=== PATIENT | male | born 1940 | race African-American/Black ===

== ENCOUNTER → 2016-07-04 | Outpatient (CLI) | payer MEDICARE ==
[2015-11-25 04:42] VITALS: BP 120/72
[~2016-07-04] MED LIST: FINA5TAB4 PO; HYDR-2666 PO; HYDR1POW19 MC; LOSA50TA6 PO; METF500T4 PO; NAPR500T PO; PREG75CA PO
--- NOTE | 2016-07-04 13:29 | RAD ---
Exam performed: Carotid Doppler. Clinical indication: TIA Date of Service: 07/04/16. Comparison : None available. Technique: Real-time grayscale and Doppler evaluation of the carotid system was performed and images are obtained. Color flow and spectral analysis was observed. Findings: There is a regular plaquing in both carotid bulbs and proximal internal carotid arteries within both carotid bulbs extending into the internal carotid artery bilaterally. Doppler interrogation reveals normal waveforms and velocities as follows . Peak systolic velocity within the right common carotid artery measures 73.0 cm/sec whereas on the left measures 98.0 cm/sec . The peak systolic velocity within the right ICA measures 90.0 cm/sec whereas on the left measures 65.0 cm/sec. The ICA to CCA ratio on the right measures 1.42 whereas on the left measures 1.13. There is antegrade flow in both vertebral arteries. Impression: 1.A regular atheromatous plaquing involving both carotid bulbs and proximal internal carotid arteries without any flow-limiting stenosis. Note: Stenosis calculations for CT, MR and conventional angiography are based upon determination of the distal ICA diameter in accordance with the NASCET methodology. Stenosis calculations for doppler studies are derived from validated velocity criteria which are known to correlate with NASCET methodology of determining stenosis.
== END | disposition home or self-care (01) ==
LOC: US 10:07
PROVIDERS: ATTEND Family Medicine
DX: I65.23 Occlusion and stenosis of bilateral carotid arteries (principal)
CPT/HCPCS: 93880

== ENCOUNTER → 2016-08-22 | Outpatient (CLI) | payer MEDICARE ==
[2015-11-25 04:42] VITALS: BP 120/72
--- NOTE | 2016-08-23 08:28 | KCIC ---
PROCEDURE MRI lumbar spine without contrast. HISTORY Stenosis, chronic low back pain. Numbness and tingling in legs. TECHNIQUE Sagittal T1, sagittal T2, sagittal STIR, axial T1, and axial T2 sequences are provided. COMPARISON CT from October 22, 2014. FINDINGS There is no malalignment. There is minimal edema in the anterior superior corner of L4 which is probably degenerative. There is fatty replacement of the endplates at several levels. There is disc desiccation from L3-L4 through L5-S1. The conus medullaris is normal in signal intensity and in position. Subcutaneous edema is noted. There is again a complex lesion in the left kidney, not a simple cyst, increased in size from prior CT lumbar spine. Finding is suspicious for renal malignancy, see May 09, 2015 MRI abdomen report. This mass now measures 2.9 x 2.4 centimeters. More typical appearing probable cysts also are noted in both kidneys, largest on the left 2.9 centimeters. The numbering system assumes 5 lumbar type vertebral bodies. Findings by individual level are as follows: L1-L2: There is facet hypertrophy with minimal foraminal narrowing. L2-L3: Minimal disc bulge and moderate facet and ligamentum flavum hypertrophy are noted. There is slight lateral recess narrowing. Midline AP diameter of the thecal sac is not significantly narrowed, 11 millimeters. There is minimal foraminal narrowing. L3-L4: There is a diffuse disc bulge. There is moderate facet and ligamentum flavum hypertrophy. Midline AP diameter of the thecal sac is narrowed to 8 millimeters. There is lateral recess narrowing bilaterally. Foraminal narrowing is [id number]. L4-L5: Disc bulge and moderate facet and ligamentum flavum hypertrophy are noted. Midline AP diameter of the thecal sac is narrowed to 8 millimeters. There is lateral recess narrowing bilaterally. Foraminal narrowing is moderate to severe. L5-S1: Disc bulge and facet hypertrophy are noted with moderate to severe left and [id number] right foraminal narrowing. There is no canal stenosis, midline AP diameter of the thecal sac 14 millimeters. IMPRESSION - Degenerative disc disease along with facet and ligamentum flavum hypertrophy are noted throughout the lumbar spine. Findings are greatest at L3-L4 and L4-L5. - Increased size of the suspicious left renal mass. Electronically signed by: Isaiah Salazar MD (Aug 23, 2016 08:27:05)
== END | disposition home or self-care (01) ==
LOC: KCIC MRI 17:11
DX: M51.36 Other intervertebral disc degeneration, lumbar region (principal); N28.89 Other specified disorders of kidney and ureter
CPT/HCPCS: 72148

== ENCOUNTER → 2016-09-02 | Outpatient (CLI) | payer MEDICARE ==
[2015-11-25 04:42] VITALS: BP 120/72
--- NOTE | 2016-09-02 16:50 | RAD ---
Indication benign prostatic hypertrophy. Grayscale imaging targeted to the kidneys was performed. The right kidney measures 10.7 x 4.6 x 5.2 cm. No hydronephrosis or mass is seen. The urinary bladder appeared grossly normal. Prostatic volume was estimated at approximately 50 cm3.. The urinary bladder was only partially visualized and largely collapsed but appear grossly normal the left kidney measures 10.4 x 4.7 x 4.8 cm. There is a hypoechoic 3 cm mass associated with the left kidney compatible with a cyst. There appears to be a minute left renal calculus. Note was made during the examination of a hypoechoic, probably fluid collection, measuring approximately 5.2 x 3.2 x 4.7 cm immediately superior to the bladder. IMPRESSION: No evidence of hydronephrosis or solid mass seen associated with either kidney. Left renal cyst. Probable minute left renal calculus. Enlarged prostate. Fluid collection superior to the bladder measuring approximately 5 cm in greatest dimension
== END | disposition home or self-care (01) ==
LOC: US 15:46
PROVIDERS: ATTEND Nurse Practitioner Occupational Health
DX: N28.1 Cyst of kidney, acquired (principal)
CPT/HCPCS: 76770

== ENCOUNTER → 2016-09-26 | Outpatient (CLI) | payer MEDICARE ==
[2015-11-25 04:42] VITALS: BP 120/72
[~2016-09-26] MED LIST changes: -HYDR-2666 PO; +HYDR-2758 PO
--- NOTE | 2016-09-26 12:32 | FMS ---
Bilateral shoulders, 6 views, 09/26/2016: History: Shoulder pain The bony structures are demineralized. No acute fracture or dislocation is identified. There are moderate degenerative changes of the glenohumeral articulations, worse on the left. There is moderate spurring at both acromioclavicular articulations. IMPRESSION: 1. Moderate degenerative changes at both glenohumeral and acromioclavicular joints. 2. No acute bony abnormality is detected.
== END | disposition home or self-care (01) ==
LOC: FMSRAD 09:14
PROVIDERS: ATTEND Nurse Practitioner Occupational Health

== ENCOUNTER 2016-11-02 11:52 | Emergency (ER) | payer MEDICARE ==
[2016-11-02 12:34] VITALS: BP 145/76
[2016-11-02] MEDS ORDERED: MORPHINE SULFATE 10 MG/ML VIAL. IM ONE (12:45)
[2016-11-02] MEDS ORDERED: KETOROLAC TROMETHAMINE 60 MG/2 ML INJ. IM ONE (12:45)
[2016-11-02] MEDS ORDERED: CYCLOBENZAPRINE 10 MG TABLET. PO ONE (12:45)
[2016-11-02] MEDS ORDERED: CYCL10TA2 PO (12:46)
--- NOTE | 2016-11-02 12:46 | PHYS DOC ---
Past Medical History Past Medical History: Diabetes-Type II, High Cholesterol, Hypertension, Other Additional Past Medical Histor: neuropathy Past Surgical History: Other Additional Past Surgical Histo: penile implant, spine sx Alcohol Use: None Drug Use: None Adult General Chief Complaint Chief Complaint: LOWER EXT PAIN HPI HPI Patient is a 76 year old male with history of hypertension diabetes type 2 high cholesterol chronic back pain with sciatica who presents with moderate left low back pain radiating to the left lower extremity that began 4 days ago. Patient states he follows up with [facility] pain clinic and has a contract with them. Patient denies any injuries. Denies any loss of bowel bladder function. PCP Dr. Potts Review of Systems Review of Systems Constitutional: Denies fever or chills [] Eyes: Denies change in visual acuity, redness, or eye pain [] HENT: Denies nasal congestion or sore throat [] GI: Denies abdominal pain, nausea, vomiting, bloody stools or diarrhea [] : Denies dysuria or hematuria [] Musculoskeletal: left low back pain radiating to the left lower extremity Integument: Denies rash or skin lesions [] Neurologic: Denies headache, focal weakness or sensory changes [] Endocrine: Denies polyuria or polydipsia [] Current Medications Current Medications Current Medications Medications (Trade) Dose Ordered Sig/López Start Time Stop Time Status Last Admin Dose Admin Cyclobenzaprine HCl (Flexeril) 10 mg 1X ONCE 11/02/16 12:45 11/02/16 12:46 UNV Ketorolac Tromethamine (Toradol Im) 60 mg 1X ONCE 11/02/16 12:45 11/02/16 12:46 UNV Morphine Sulfate 5 mg 1X ONCE 11/02/16 12:45 11/02/16 12:46 UNV Allergies Allergies Allergies Coded Allergies Type Severity Reaction Last Updated Verified No Known Drug Allergies 09/19/13 No Physical Exam Physical Exam Constitutional: Well developed, well nourished, no acute distress, non-toxic appearance. [] HENT: Normocephalic, atraumatic, bilateral external ears normal, oropharynx moist, no oral exudates, nose normal. [] Abdomen: Bowel sounds normal, soft, no tenderness, no masses, no pulsatile masses. [] Skin: Warm, dry, no erythema, no rash. [] Back: Moderate left SI joint tenderness, no midline lumbar spine tenderness, no CVA tenderness. [] Extremities: No tenderness, no cyanosis, no clubbing, ROM intact, no edema. [] Neurologic: Alert and oriented X 3, normal motor function, normal sensory function, no focal deficits noted. [] Psychologic: Affect normal, judgement normal, mood normal. [] Current Patient Data Vital Signs Vital Signs Date Time Temp Pulse Resp B/P (MAP) Pulse Ox O2 Delivery O2 Flow Rate FiO2 11/02/16 12:34 99.3 82 18 97 Room Air 99.3 EKG EKG [] Radiology/Procedures Radiology/Procedures [] Course & Med Decision Making Course & Med Decision Making Pertinent Labs and Imaging studies reviewed. (See chart for details) Patient is in the ED with exacerbation of chronic low back pain with sciatica, no cauda equina syndrome on exam. He follows up with [facility] pain clinic. He was given pain relief in the ED and discharged with Flexeril. He should follow- up with his own pain clinic doctor on Friday next week. Dragon Disclaimer Dragon Disclaimer This electronic medical record was generated, in whole or in part, using a voice recognition dictation system. Departure Departure Impression: Primary Impression: Back pain Additional Impression: Left sciatic nerve pain Disposition: HOME, SELF-CARE Condition: STABLE Referrals: TONY POTTS MD (PCP) Follow-up with your doctor next week as well as the pain clinic doctor Patient Instructions: Back Pain, Adult, Sciatica Additional Instructions: You were seen for exacerbation of chronic back pain with sciatica. Follow-up with the pain clinic at [facility] next week. Take the muscle relaxers as needed. You can take Tylenol for pain. Return to the ED if symptoms worsen especially if you develop loss of bowel or bladder function. Scripts Cyclobenzaprine Hcl (CYCLOBENZAPRINE HCL) 10 Mg Tablet 1 TAB PO TID, #30 TAB Prov: IVANNA LIZARRAGA APRN 11/02/16 Problem Qualifiers Primary Impression: Back pain Back pain location: low back pain Chronicity: acute Back pain laterality: left Sciatica presence: with sciatica Sciatica laterality: sciatica of left side Qualified Codes: M54.42 - Lumbago with sciatica, left side IVANNA LIZARRAGA RISK CONTROL DIRECTOR Nov 02, 2016 12:46
== END 2016-11-02 13:06 | disposition home or self-care (01) ==
LOC: ER 11:52
DX: M54.42 Lumbago with sciatica, left side (principal); E78.00 Pure hypercholesterolemia, unspecified; I10 Essential (primary) hypertension; G89.29 Other chronic pain; E11.40 Type 2 diabetes mellitus with diabetic neuropathy, unspecified
CPT/HCPCS: 96372; 99284; J1885; J2270

== ENCOUNTER 2018-01-29 03:57 | Inpatient (IN) | payer MEDICARE ==
[~2018-01-29] VITALS: Ht 175.3 cm; Wt 98.9 kg
[~2018-01-29 03:57] MED LIST changes: +CYCL10TA2 PO; -LOSA50TA6 PO; +LOSA50TA7 PO; +METF500T16 PO; -METF500T4 PO; +NAPR-683 PO; -NAPR500T PO
[2018-01-29 04:54] LABS: BASO % 1 % (0-3); EOS # 0.1 x10^3/uL (0.0-0.7); EOS % 2 % (0-3); HEMATOCRIT 37.9 % (39.0-53.0); HEMOGLOBIN 13.1 g/dL (13.0-17.5); LYMPH # 1.5 x10^3/uL (1.0-4.8); LYMPH % 23 % (24-48); MEAN CORPUSCULAR HEMOGLOBIN 30 pg (25-35); MEAN CORPUSCULAR HGB CONC 35 g/dL (31-37); MEAN CORPUSCULAR VOLUME 86 fL (79-100); MONO # 0.6 x10^3/uL (0.0-1.1); MONO % 9 % (0-9); NEUT # 4.2 x10^3uL (1.8-7.7); NEUT % 66 % (31-73); PLATELET COUNT 209 x10^3/uL (140-400); RED BLOOD COUNT 4.42 x10^6/uL (4.30-5.70); RED CELL DISTRIBUTION WIDTH 15.3 % (11.5-14.5); WHITE BLOOD COUNT 6.3 x10^3/uL (4.0-11.0)
--- NOTE | 2018-01-29 05:00 | PHYS DOC ---
Past Medical History Past Medical History: COPD, Diabetes-Type II, High Cholesterol, Hypertension, Other Additional Past Medical Histor: neuropathy Past Surgical History: Other Additional Past Surgical Histo: penile implant, spine sx Smoking: Quit Less Than 1 Year Additional Information: STOPPED A FEW WEEKS AGO OF 01/29/2018 Alcohol Use: None Drug Use: None Adult General Chief Complaint Chief Complaint: WEAKNESS/GENERALIZED HPI HPI Patient is a 77 year old male who presents to the ED with generalized weakness and dizziness. He states his symptoms began about 2-3 days ago. 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 He also notes some pain in his right shoulder and the right lateral neck. He rates the pain as a 7/10 and describes it as a constant, achy pain. He notes he has had symptoms like this in the past, but states it was a long time ago and does not remember what caused them. He denies any history of stroke. He also denies any changes in speech, vision, or memory. He denies headache, chest pain, shortness of breath, heart palpitations, numbness, tingling, abdominal pain, nausea, and vomiting. Denies trauma. Denies fever/chills. Review of Systems Review of Systems Constitutional: Notes dizziness; Denies fever or chills Eyes: Denies change in visual acuity, redness, or eye pain HENT: Denies nasal congestion or sore throat Respiratory: Denies cough or shortness of breath Cardiovascular: Denies chest pain or heart palpitations GI: Denies abdominal pain, nausea, vomiting, bloody stools or diarrhea : Denies dysuria or hematuria Musculoskeletal: Notes right shoulder and right neck pain; Denies back pain or joint pain Integument: Denies rash or skin lesions Neurologic: Notes generalized weakness; Denies headache or sensory changes Complete systems were reviewed and found to be within normal limits, except as documented in this note. Family History Family History Noncontributory Current Medications Current Medications Current Medications Medications (Trade) Dose Ordered Sig/López Start Time Stop Time Status Last Admin Dose Admin Aspirin (Daljit Aspirin) 325 mg 1X ONCE 01/29/18 06:15 01/29/18 06:16 Ceftriaxone Sodium 50 ml @ 100 mls/hr 1X ONCE 01/29/18 06:00 01/29/18 06:29 Home meds: hydrocodone, cyclobenzaprine, losartan, metformin, HCTZ, finasteride , pregabalin, and naproxen Allergies Allergies Allergies Coded Allergies Type Severity Reaction Last Updated Verified No Known Drug Allergies 09/19/13 No Physical Exam Physical Exam Constitutional: Well developed, well nourished, no acute distress HENT: Normocephalic, atraumatic, oropharynx moist Eyes: PERRL, EOMI, conjunctiva normal, no discharge Neck: No tenderness to palpation, supple, ROM slightly decreased looking to right Cardiovascular: Heart rate regular rhythm, no murmur Lungs & Thorax: Bilateral breath sounds clear to auscultation Abdomen: Soft, nontender Skin: Warm, dry, no erythema, no rash. [] Back: No tenderness, no CVA tenderness. [] Extremities: No tenderness, no cyanosis, no clubbing, ROM intact, no edema. [] Neurologic: Alert and oriented X 3, cerebellar function intact, normal sensory function, BLE strength +4/5 (drift without touching bed) Psychologic: Affect normal, judgement normal, mood normal. [] NIHSS 2 due to bilateral lower extremity drift without touching bed. Current Patient Data Vital Signs Vital Signs Date Time Temp Pulse Resp B/P (MAP) Pulse Ox O2 Delivery O2 Flow Rate FiO2 01/29/18 04:05 98.1 70 20 145/75 (98) 97 Room Air 98.1 Lab Values Laboratory Tests Test 01/29/18 04:40 01/29/18 05:00 White Blood Count 6.3 x10^3/uL (4.0-11.0) Red Blood Count 4.42 x10^6/uL (4.30-5.70) Hemoglobin 13.1 g/dL (13.0-17.5) Hematocrit 37.9 % (39.0-53.0) L Mean Corpuscular Volume 86 fL (79-100) Mean Corpuscular Hemoglobin 30 pg (25-35) Mean Corpuscular Hemoglobin Concent 35 g/dL (31-37) Red Cell Distribution Width 15.3 % (11.5-14.5) H Platelet Count 209 x10^3/uL (140-400) Neutrophils (%) (Auto) 66 % (31-73) Lymphocytes (%) (Auto) 23 % (24-48) L Monocytes (%) (Auto) 9 % (0-9) Eosinophils (%) (Auto) 2 % (0-3) Basophils (%) (Auto) 1 % (0-3) Neutrophils # (Auto) 4.2 x10^3uL (1.8-7.7) Lymphocytes # (Auto) 1.5 x10^3/uL (1.0-4.8) Monocytes # (Auto) 0.6 x10^3/uL (0.0-1.1) Eosinophils # (Auto) 0.1 x10^3/uL (0.0-0.7) Basophils # (Auto) 0.0 x10^3/uL (0.0-0.2) Sodium Level 147 mmol/L (136-145) H Potassium Level 4.1 mmol/L (3.5-5.1) Chloride Level 108 mmol/L (98-107) H Carbon Dioxide Level 30 mmol/L (21-32) Anion Gap 9 (6-14) Blood Urea Nitrogen 13 mg/dL (8-26) Creatinine 1.0 mg/dL (0.7-1.3) Estimated GFR (Cockcroft-Gault) 87.9 BUN/Creatinine Ratio 13 (6-20) Glucose Level 94 mg/dL (70-99) Calcium Level 9.2 mg/dL (8.5-10.1) Magnesium Level 1.6 mg/dL (1.8-2.4) L Total Bilirubin 0.4 mg/dL (0.2-1.0) Aspartate Amino Transferase (AST) 15 U/L (15-37) Alanine Aminotransferase (ALT) 22 U/L (16-63) Alkaline Phosphatase 58 U/L (46-116) Creatine Kinase 136 U/L (39-308) Troponin I Quantitative < 0.017 ng/mL (0.000-0.055) Total Protein 6.7 g/dL (6.4-8.2) Albumin 3.3 g/dL (3.4-5.0) L Albumin/Globulin Ratio 1.0 (1.0-1.7) Urine Collection Type Unknown Urine Color Yellow Urine Clarity Clear Urine pH 5.5 Urine Specific [place] 1.015 Urine Protein Negative mg/dL (NEG-TRACE) Urine Glucose (UA) Negative mg/dL (NEG) Urine Ketones (Stick) Negative mg/dL (NEG) Urine Blood Large (NEG) Urine Nitrite Positive (NEG) Urine Bilirubin Negative (NEG) Urine Urobilinogen Dipstick 1.0 mg/dL (0.2 mg/dL) Urine Leukocyte Esterase Large (NEG) Urine RBC >40 /HPF (0-2) Urine WBC 11-20 /HPF (0-4) Urine Bacteria Moderate /HPF (0-FEW) Lactic Acid Level 0.9 mmol/L (0.4-2.0) Laboratory Tests 01/29/18 04:40 Laboratory Tests 01/29/18 04:40 EKG EKG @ 4:52, normal sinus rhythm at 60 bpm, some premature atrial complexes, no ST elevations or reciprocal changes; doubt ischemic etiology Interpretation Time: @ 4:56 Radiology/Procedures Radiology/Procedures PROCEDURE: CT HEAD WO CONTRAST PQRS Compliance statement: One or more of the following individualized dose reduction techniques were utilized for this examination: 1. Automated exposure control. 2. Adjustment of the mA and/or kV according to patient size. 3. Use of iterative reconstruction technique. Indication:WEAKNESS TECHNIQUE: CT head without IV contrast COMPARISON:None FINDINGS: No pathologic extra-axial or intra-axial fluid collection. The ventricles and basal cisterns are within normal limits. Small area of encephalomalacia is seen in the anterior left frontal lobe. No acute intracranial bleed. Periventricular and deep white matter low-attenuation seen. Orbits within normal limits. No suspicious calvarial lesion. Visualized paranasal sinuses and mastoid air cells are clear. Likely old fracture deformity of the medial wall of the left orbit. IMPRESSION: 1. No acute intracranial process. 2. 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 Clinically correlate with history. If concern for acute ischemic stroke is high, please consider MRI brain. 3. White matter changes most likely secondary to chronic microvascular ischemic disease. CXR: (preliminary interpretation by ED physician): Bibasilar atelectasis/ pleural effusions, no focal pneumonia noted Course & Med Decision Making Course & Med Decision Making Patient is a 77 year old male who presents to the ED with generalized weakness and dizziness. NIHSS 2- Strength slightly decreased to BLE +4/5. Otherwise neurologically intact. Pertinent labs and imaging studies were obtained and reviewed (see chart for details). EKG @ 4:52 showed normal sinus rhythm at 60 bpm with some premature atrial complexes and no ST elevations or reciprocal changes. Doubt ischemic etiology. CXR clear. CT of the head showed no acute intracranial process, but a small area of encephalomalacia in the left frontal lobe likely old infarct, as well as white matter changes most likely secondary to chronic microvascular ischemic disease. UA showed large blood, positive nitrite, large leukocyte esterase, and 11-40 urine WBC, consistent with a UTI. Patient given one-time dose of Rocephin in the ED, as well as one- time dose of aspirin. Patient requiring admission for further evaluation and treatment of his generalized weakness and UTI. Discussed with Dr. Nick ( hospitalist) who is in agreement with admission. Discussed findings and plan with patient and family, who acknowledge understanding and agreement. Dragon Disclaimer Dragon Disclaimer This electronic medical record was generated, in whole or in part, using a voice recognition dictation system. Departure Departure Impression: Primary Impression: Generalized weakness Additional Impression: Urinary tract infection Disposition: ADMITTED INPATIENT Admitting Physician: Hayley Nick Condition: STABLE Referrals: TYRONE PEREIRA MD (PCP) Problem Qualifiers Additional Impression: Urinary tract infection Urinary tract infection type: site unspecified Hematuria presence: with hematuria Qualified Codes: N39.0 - Urinary tract infection, site not specified ; R31.9 - Hematuria, unspecified MIKHAIL MARINO DO Jan 29, 2018 05:00
[2018-01-29 05:13] LABS: CALCIUM 9.2 mg/dL (8.5-10.1); GFR 87.9; POTASSIUM 4.1 mmol/L (3.5-5.1)
[2018-01-29 05:18] LABS: ALBUMIN 3.3 g/dL (3.4-5.0); MAGNESIUM 1.6 mg/dL (1.8-2.4); TOTAL BILIRUBIN 0.4 mg/dL (0.2-1.0); TOTAL PROTEIN 6.7 g/dL (6.4-8.2)
[2018-01-29 05:38] LABS: BILIRUBIN,URINE NEGATIVE (NEG); CLARITY,URINE CLEAR; COLOR,URINE YELLOW; NITRITE,URINE POSITIVE (NEG); PH,URINE 5.5; PROTEIN,URINE NEGATIVE (NEG-TRACE)
--- NOTE | 2018-01-29 05:43 | RAD ---
PQRS Compliance statement: One or more of the following individualized dose reduction techniques were utilized for this examination: 1. Automated exposure control. 2. Adjustment of the mA and/or kV according to patient size. 3. Use of iterative reconstruction technique. Indication:WEAKNESS TECHNIQUE: CT head without IV contrast COMPARISON:None FINDINGS: No pathologic extra-axial or intra-axial fluid collection. The ventricles and basal cisterns are within normal limits. Small area of encephalomalacia is seen in the anterior left frontal lobe. No acute intracranial bleed. Periventricular and deep white matter low-attenuation seen. Orbits within normal limits. No suspicious calvarial lesion. Visualized paranasal sinuses and mastoid air cells are clear. Likely old fracture deformity of the medial wall of the left orbit. IMPRESSION: 1. No acute intracranial process. 2. 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 Clinically correlate with history. If concern for acute ischemic stroke is high, please consider MRI brain. 3. White matter changes most likely secondary to chronic microvascular ischemic disease. Electronically signed by: Flavio Dutta DO (01/29/2018 5:39 AM) [facility]
[2018-01-29 05:47] LABS: BACTERIA,URINE MODERATE /HPF (0-FEW); RBC,URINE >40 /HPF (0-2)
--- NOTE | 2018-01-29 06:01 | RAD ---
PROCEDURE: CHEST AP ONLY CLINICAL INDICATION: WEAKNESS COMPARISON: None FINDINGS: No pneumothorax identified. Cardiac and mediastinal contours unremarkable. No pulmonary consolidation or acute airspace disease. No acute osseous abnormalities identified. IMPRESSION: No pulmonary consolidation or acute airspace disease. Electronically signed by: Flavio Dutta DO (01/29/2018 5:57 AM) [facility]
--- NOTE | 2018-01-29 06:08 | EKG ---
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
[2018-01-29] MEDS ORDERED: DEXTROSE 50% 25 GM / 50ML DISP.SYRIN. IV PRN (06:15)
[2018-01-29] MEDS ORDERED: ACETAMINOPHEN 325 MG TABLET. PO PRN (06:15)
[2018-01-29] MEDS ORDERED: ONDANSETRON PF 4 MG/2 ML VIAL. IV PRN ×2 (06:15→09:15)
[2018-01-29] MEDS ORDERED: ASPIRIN 325 MG TABLET PO ONE (06:15)
[2018-01-29 07:56] VITALS: BP 147/87
[2018-01-29] MEDS ORDERED: INSULIN LISPRO 300 UNITS/3 ML INSULN.PEN. SQ SCH (08:00)
[2018-01-29] MEDS ORDERED: NAPROXEN 250 MG TABLET PO PRN (09:15)
[2018-01-29] MEDS ORDERED: MAGNESIUM SULFATE 2GM 50 ML IV ONE (09:15)
[2018-01-29] MEDS ORDERED: HYDROcodone/APAP 5/325MG 1 TAB TABLET PO PRN (09:15)
[2018-01-29] MEDS ORDERED: metFORMIN 500 MG TABLET PO SCH (10:00)
[2018-01-29] MEDS ORDERED: CYCLOBENZAPRINE 10 MG TABLET. PO SCH (10:00)
[2018-01-29] MEDS ORDERED: FINASTERIDE 5 MG TABLET. PO SCH (10:00)
[2018-01-29] MEDS ORDERED: LOSARTAN POTASSIUM 50 MG TABLET. PO SCH (10:00)
[2018-01-29 11:00] VITALS: BP 169/79
[2018-01-29] MEDS ORDERED: cefTRIAXone IV Push 1 GM VIAL. IVP SCH (11:00)
[2018-01-29] MEDS ORDERED: BACL20TA PO (11:26)
[2018-01-29] MEDS ORDERED: CIPR500T94 PO (11:54)
--- NOTE | 2018-01-29 11:57 | PDOC1 ---
History and Physical Date of Admission Date of Admission DATE: 01/29/18 TIME: 11:53 Identification/Chief Complaint Chief Complaint Weakness Source Source: Caregiver, Chart review, Patient History of Present Illness History of Present Illness Very pleasant 77-year-old -[place] male with no assistive device at home , drove himself to the emergency room. Admitted by ER because of weakness with some elyte abnormalities and UTI. He does have a UTI, got a gram of Rocephin. Electrical abnormalities including low magnesium 1.6, mild hyponatremia 127 with a low albumin 3.3. He feels better. Walked with no problems. I am comfortable discharging on by mouth Cipro today. NO hx of compliacted UTI inpast , HE is asymptomatic Past Medical History Cardiovascular: HTN, Hyperlipidemia Past Surgical History Past Surgical History: No pertinent history Family History Family History: Hypertension Social History Smoke: No ALCOHOL: none Drugs: None Current Problem List Problem List Problems Medical Problems: (1) Generalized weakness Status: Acute (2) Urinary tract infection Status: Acute Current Medications Current Medications Current Medications Ceftriaxone Sodium 50 ml @ 100 mls/hr 1X ONCE IV Last administered on at 06:15; Start 01/29/18 at 06:00; Stop 01/29/18 at 06:29; Status DC Aspirin (Daljit Aspirin) 325 mg 1X ONCE PO Last administered on 01/29/18at 06:14 ; Start 01/29/18 at 06:15; Stop 01/29/18 at 06:16; Status DC Ondansetron HCl (Zofran) 4 mg PRN Q8HRS PRN IV NAUSEA/VOMITING 1ST CHOICE; Start 01/29/18 at 06:15; Stop 01/29/18 at 09:06; Status DC Acetaminophen (Tylenol) 650 mg PRN Q4HRS PRN PO FEVER; Start 01/29/18 at 06:15 ; Stop 01/30/18 at 06:14 Insulin Human Lispro (HumaLOG) 0-5 UNITS TIDWMEALS SQ ; Start 01/29/18 at 08:00 ; Stop 01/29/18 at 09:06; Status DC Dextrose (Dextrose 50%-Water Syringe) 12.5 gm PRN Q15MIN PRN IV SEE COMMENTS; Start 01/29/18 at 06:15 Ondansetron HCl (Zofran) 4 mg PRN Q6HRS PRN IV NAUSEA/VOMITING 1ST CHOICE; Start 01/29/18 at 09:15 Magnesium Sulfate 50 ml @ 25 mls/hr 1X ONCE IV Last administered on 01/29/18at 11:39; Start 01/29/18 at 09:15; Stop 01/29/18 at 11:14; Status DC Ceftriaxone Sodium 1 gm/ Dextrose 50 ml @ 100 mls/hr Q24H IV ; Start 01/29/18 at 09:15; Status UNV Cyclobenzaprine HCl (Flexeril) 10 mg TID PO ; Start 01/29/18 at 10:00 Finasteride (Proscar) 5 mg DAILY PO ; Start 01/29/18 at 10:00 Acetaminophen/ Hydrocodone Bitart (Lortab 5/325) 1 tab PRN QID PRN PO MODERATE PAIN; Start 01/29/18 at 09:15 Losartan Potassium (Cozaar) 50 mg DAILY PO ; Start 01/29/18 at 10:00 Pregabalin (Lyrica) 75 mg QHS PO ; Start 01/29/18 at 21:00 Metformin HCl (Glucophage) 500 mg BIDWMEALS PO ; Start 01/29/18 at 10:00 Naproxen (Naprosyn) 250 mg PRN BID PRN PO MILD PAIN; Start 01/29/18 at 09:15 Ceftriaxone Sodium (Rocephin) 1 gm Q24H IVP Last administered on 01/29/18at 11: 40; Start 01/29/18 at 11:00 Active Scripts Active Hydrocodone-Apap 5-325 (Hydrocodone Bit/Acetaminophen) 1 Each Tablet 1 Tab PO PRN Q6HRS PRN Reported Baclofen 20 Mg Tablet 1 Tab PO BID Naprosyn (Naproxen) 500 Mg Tablet 500 Mg PO Lyrica (Pregabalin) 75 Mg Capsule 75 Mg PO Finasteride 5 Mg Tablet 5 Mg PO Hydrochlorothiazide 25 Gm Powder 25 Gm MC Metformin Hcl 500 Mg Tablet 500 Mg PO BID Hydrocodone-Apap 5-325 (Hydrocodone Bit/Acetaminophen) 1 Each Tablet 1 Each PO Losartan Potassium 50 Mg Tablet 50 Mg PO Allergies Allergies: Coded Allergies: No Known Drug Allergies (Unverified , 09/19/13) ROS Review of System A 14 point ROS was completed with the following noted as positive: Other systems reviewed and negative. \CONSTITUTIONAL: No fever or chills EYES: No recent changes SKIN: No rash or itching CARDIOVASCULAR: No chest pain, syncope, palpitations, or edema RESPIRATORY: No SOB or cough GASTROINTESTINAL: No nausea, vomiting or abdominal pain NEUROLOGICAL: No headaches or weakness ENDOCRINE: No cold or heat intolerance GENITOURINARY: No urgency or frequency of urination MUSCULOSKELETAL: No back pain or joint pain LYMPHATICS: No enlarged lymph nodes PSYCHIATRIC: No anxiety or depression Physical Exam General: Alert, Oriented X3, Cooperative, No acute distress HEENT: Atraumatic, PERRLA, EOMI Lungs: Clear to auscultation, Normal air movement Heart: S1S2, RRR, no thrills, no rubs, no gallops, no murmurs Cardiovascular: S1, S2 Abdomen: Normal bowel sounds, Soft, No tenderness, No hepatosplenomegaly, No masses Male Genitals Exam: normal genitalia, normal prostate Rectal Exam: not examined PELVIC: Nml ext genitalia Extremities: No clubbing, No cyanosis, No edema, Normal pulses, No tenderness/ swelling Skin: No rashes, No breakdown, No significant lesion Neuro: Normal gait, Normal speech, Strength at 5/5 X4 ext, Normal tone, Sensation intact, Cranial nerves 3-12 NL, Reflexes 2+ Psych/Mental Status: Mental status NL, Mood NL Vitals Vitals Vital Signs Date Time Temp Pulse Resp B/P (MAP) Pulse Ox O2 Delivery O2 Flow Rate FiO2 01/29/18 11:00 97.7 57 20 169/79 (109) 98 Room Air 97.7 Labs Labs Laboratory Tests Test 01/29/18 04:40 01/29/18 05:00 01/29/18 09:15 01/29/18 11:49 White Blood Count 6.3 x10^3/uL (4.0-11.0) Red Blood Count 4.42 x10^6/uL (4.30-5.70) Hemoglobin 13.1 g/dL (13.0-17.5) Hematocrit 37.9 % (39.0-53.0) Mean Corpuscular Volume 86 fL (79-100) Mean Corpuscular Hemoglobin 30 pg (25-35) Mean Corpuscular Hemoglobin Concent 35 g/dL (31-37) Red Cell Distribution Width 15.3 % (11.5-14.5) Platelet Count 209 x10^3/uL (140-400) Neutrophils (%) (Auto) 66 % (31-73) Lymphocytes (%) (Auto) 23 % (24-48) Monocytes (%) (Auto) 9 % (0-9) Eosinophils (%) (Auto) 2 % (0-3) Basophils (%) (Auto) 1 % (0-3) Neutrophils # (Auto) 4.2 x10^3uL (1.8-7.7) Lymphocytes # (Auto) 1.5 x10^3/uL (1.0-4.8) Monocytes # (Auto) 0.6 x10^3/uL (0.0-1.1) Eosinophils # (Auto) 0.1 x10^3/uL (0.0-0.7) Basophils # (Auto) 0.0 x10^3/uL (0.0-0.2) Sodium Level 147 mmol/L (136-145) Potassium Level 4.1 mmol/L (3.5-5.1) Chloride Level 108 mmol/L (98-107) Carbon Dioxide Level 30 mmol/L (21-32) Anion Gap 9 (6-14) Blood Urea Nitrogen 13 mg/dL (8-26) Creatinine 1.0 mg/dL (0.7-1.3) Estimated GFR (Cockcroft-Gault) 87.9 BUN/Creatinine Ratio 13 (6-20) Glucose Level 94 mg/dL (70-99) Calcium Level 9.2 mg/dL (8.5-10.1) Magnesium Level 1.6 mg/dL (1.8-2.4) Total Bilirubin 0.4 mg/dL (0.2-1.0) Aspartate Amino Transf (AST/SGOT) 15 U/L (15-37) Alanine Aminotransferase (ALT/SGPT) 22 U/L (16-63) Alkaline Phosphatase 58 U/L (46-116) Creatine Kinase 136 U/L (39-308) Troponin I Quantitative < 0.017 ng/mL (0.000-0.055) < 0.017 ng/mL (0.000-0.055) Total Protein 6.7 g/dL (6.4-8.2) Albumin 3.3 g/dL (3.4-5.0) Albumin/Globulin Ratio 1.0 (1.0-1.7) Urine Collection Type Unknown Urine Color Yellow Urine Clarity Clear Urine pH 5.5 Urine Specific [place] 1.015 Urine Protein Negative mg/dL (NEG-TRACE) Urine Glucose (UA) Negative mg/dL (NEG) Urine Ketones (Stick) Negative mg/dL (NEG) Urine Blood Large (NEG) Urine Nitrite Positive (NEG) Urine Bilirubin Negative (NEG) Urine Urobilinogen Dipstick 1.0 mg/dL (0.2 mg/dL) Urine Leukocyte Esterase Large (NEG) Urine RBC >40 /HPF (0-2) Urine WBC 11-20 /HPF (0-4) Urine Bacteria Moderate /HPF (0-FEW) Lactic Acid Level 0.9 mmol/L (0.4-2.0) Glucose (Fingerstick) 90 mg/dL (70-99) Laboratory Tests Test 01/29/18 04:40 01/29/18 05:00 01/29/18 09:15 01/29/18 11:49 White Blood Count 6.3 x10^3/uL (4.0-11.0) Red Blood Count 4.42 x10^6/uL (4.30-5.70) Hemoglobin 13.1 g/dL (13.0-17.5) Hematocrit 37.9 % (39.0-53.0) Mean Corpuscular Volume 86 fL (79-100) Mean Corpuscular Hemoglobin 30 pg (25-35) Mean Corpuscular Hemoglobin Concent 35 g/dL (31-37) Red Cell Distribution Width 15.3 % (11.5-14.5) Platelet Count 209 x10^3/uL (140-400) Neutrophils (%) (Auto) 66 % (31-73) Lymphocytes (%) (Auto) 23 % (24-48) Monocytes (%) (Auto) 9 % (0-9) Eosinophils (%) (Auto) 2 % (0-3) Basophils (%) (Auto) 1 % (0-3) Neutrophils # (Auto) 4.2 x10^3uL (1.8-7.7) Lymphocytes # (Auto) 1.5 x10^3/uL (1.0-4.8) Monocytes # (Auto) 0.6 x10^3/uL (0.0-1.1) Eosinophils # (Auto) 0.1 x10^3/uL (0.0-0.7) Basophils # (Auto) 0.0 x10^3/uL (0.0-0.2) Sodium Level 147 mmol/L (136-145) Potassium Level 4.1 mmol/L (3.5-5.1) Chloride Level 108 mmol/L (98-107) Carbon Dioxide Level 30 mmol/L (21-32) Anion Gap 9 (6-14) Blood Urea Nitrogen 13 mg/dL (8-26) Creatinine 1.0 mg/dL (0.7-1.3) Estimated GFR (Cockcroft-Gault) 87.9 BUN/Creatinine Ratio 13 (6-20) Glucose Level 94 mg/dL (70-99) Calcium Level 9.2 mg/dL (8.5-10.1) Magnesium Level 1.6 mg/dL (1.8-2.4) Total Bilirubin 0.4 mg/dL (0.2-1.0) Aspartate Amino Transf (AST/SGOT) 15 U/L (15-37) Alanine Aminotransferase (ALT/SGPT) 22 U/L (16-63) Alkaline Phosphatase 58 U/L (46-116) Creatine Kinase 136 U/L (39-308) Troponin I Quantitative < 0.017 ng/mL (0.000-0.055) < 0.017 ng/mL (0.000-0.055) Total Protein 6.7 g/dL (6.4-8.2) Albumin 3.3 g/dL (3.4-5.0) Albumin/Globulin Ratio 1.0 (1.0-1.7) Urine Collection Type Unknown Urine Color Yellow Urine Clarity Clear Urine pH 5.5 Urine Specific [place] 1.015 Urine Protein Negative mg/dL (NEG-TRACE) Urine Glucose (UA) Negative mg/dL (NEG) Urine Ketones (Stick) Negative mg/dL (NEG) Urine Blood Large (NEG) Urine Nitrite Positive (NEG) Urine Bilirubin Negative (NEG) Urine Urobilinogen Dipstick 1.0 mg/dL (0.2 mg/dL) Urine Leukocyte Esterase Large (NEG) Urine RBC >40 /HPF (0-2) Urine WBC 11-20 /HPF (0-4) Urine Bacteria Moderate /HPF (0-FEW) Lactic Acid Level 0.9 mmol/L (0.4-2.0) Glucose (Fingerstick) 90 mg/dL (70-99) VTE Prophylaxis Ordered VTE Prophylaxis Devices: Yes VTE Pharmacological Prophylaxi: Yes Assessment/Plan Assessment/Plan InciDental UTI Generalized weakness-resolved Hypomagnesemia, replaced Hyponatremia Mild PCM albumin 3.3 Plan: Home today, by mouth Cipro No change in meds, to continue all home meds CATY ARROYO MD Jan 29, 2018 11:57
--- NOTE | 2018-01-29 12:01 | PDOC3 ---
Discharge Summary Visit Information Date of Admission: Jan 28, 2018 Date of Discharge: Jan 29, 2018 Admitting Diagnosis Comment: InciDental UTI Hypomagnesemia replaced Mild PCM, albumin 3.3 Mild hyponatremia 127 Plan home today Final Diagnosis Problems Medical Problems: (1) Generalized weakness Status: Acute (2) Urinary tract infection Status: Acute Brief Hospital Course Allergies Allergies Coded Allergies Type Severity Reaction Last Updated Verified No Known Drug Allergies 09/19/13 No Vital Signs Vital Signs Date Time Temp Pulse Resp B/P (MAP) Pulse Ox O2 Delivery O2 Flow Rate FiO2 01/29/18 11:00 97.7 57 20 169/79 (109) 98 Room Air 97.7 Lab Results Laboratory Tests Test 01/29/18 04:40 01/29/18 05:00 01/29/18 09:15 01/29/18 11:49 White Blood Count 6.3 x10^3/uL (4.0-11.0) Red Blood Count 4.42 x10^6/uL (4.30-5.70) Hemoglobin 13.1 g/dL (13.0-17.5) Hematocrit 37.9 % (39.0-53.0) Mean Corpuscular Volume 86 fL (79-100) Mean Corpuscular Hemoglobin 30 pg (25-35) Mean Corpuscular Hemoglobin Concent 35 g/dL (31-37) Red Cell Distribution Width 15.3 % (11.5-14.5) Platelet Count 209 x10^3/uL (140-400) Neutrophils (%) (Auto) 66 % (31-73) Lymphocytes (%) (Auto) 23 % (24-48) Monocytes (%) (Auto) 9 % (0-9) Eosinophils (%) (Auto) 2 % (0-3) Basophils (%) (Auto) 1 % (0-3) Neutrophils # (Auto) 4.2 x10^3uL (1.8-7.7) Lymphocytes # (Auto) 1.5 x10^3/uL (1.0-4.8) Monocytes # (Auto) 0.6 x10^3/uL (0.0-1.1) Eosinophils # (Auto) 0.1 x10^3/uL (0.0-0.7) Basophils # (Auto) 0.0 x10^3/uL (0.0-0.2) Sodium Level 147 mmol/L (136-145) Potassium Level 4.1 mmol/L (3.5-5.1) Chloride Level 108 mmol/L (98-107) Carbon Dioxide Level 30 mmol/L (21-32) Anion Gap 9 (6-14) Blood Urea Nitrogen 13 mg/dL (8-26) Creatinine 1.0 mg/dL (0.7-1.3) Estimated GFR (Cockcroft-Gault) 87.9 BUN/Creatinine Ratio 13 (6-20) Glucose Level 94 mg/dL (70-99) Calcium Level 9.2 mg/dL (8.5-10.1) Magnesium Level 1.6 mg/dL (1.8-2.4) Total Bilirubin 0.4 mg/dL (0.2-1.0) Aspartate Amino Transf (AST/SGOT) 15 U/L (15-37) Alanine Aminotransferase (ALT/SGPT) 22 U/L (16-63) Alkaline Phosphatase 58 U/L (46-116) Creatine Kinase 136 U/L (39-308) Troponin I Quantitative < 0.017 ng/mL (0.000-0.055) < 0.017 ng/mL (0.000-0.055) Total Protein 6.7 g/dL (6.4-8.2) Albumin 3.3 g/dL (3.4-5.0) Albumin/Globulin Ratio 1.0 (1.0-1.7) Urine Collection Type Unknown Urine Color Yellow Urine Clarity Clear Urine pH 5.5 Urine Specific [place] 1.015 Urine Protein Negative mg/dL (NEG-TRACE) Urine Glucose (UA) Negative mg/dL (NEG) Urine Ketones (Stick) Negative mg/dL (NEG) Urine Blood Large (NEG) Urine Nitrite Positive (NEG) Urine Bilirubin Negative (NEG) Urine Urobilinogen Dipstick 1.0 mg/dL (0.2 mg/dL) Urine Leukocyte Esterase Large (NEG) Urine RBC >40 /HPF (0-2) Urine WBC 11-20 /HPF (0-4) Urine Bacteria Moderate /HPF (0-FEW) Lactic Acid Level 0.9 mmol/L (0.4-2.0) Glucose (Fingerstick) 90 mg/dL (70-99) Laboratory Tests Test 01/29/18 04:40 01/29/18 05:00 01/29/18 09:15 01/29/18 11:49 White Blood Count 6.3 x10^3/uL (4.0-11.0) Red Blood Count 4.42 x10^6/uL (4.30-5.70) Hemoglobin 13.1 g/dL (13.0-17.5) Hematocrit 37.9 % (39.0-53.0) Mean Corpuscular Volume 86 fL (79-100) Mean Corpuscular Hemoglobin 30 pg (25-35) Mean Corpuscular Hemoglobin Concent 35 g/dL (31-37) Red Cell Distribution Width 15.3 % (11.5-14.5) Platelet Count 209 x10^3/uL (140-400) Neutrophils (%) (Auto) 66 % (31-73) Lymphocytes (%) (Auto) 23 % (24-48) Monocytes (%) (Auto) 9 % (0-9) Eosinophils (%) (Auto) 2 % (0-3) Basophils (%) (Auto) 1 % (0-3) Neutrophils # (Auto) 4.2 x10^3uL (1.8-7.7) Lymphocytes # (Auto) 1.5 x10^3/uL (1.0-4.8) Monocytes # (Auto) 0.6 x10^3/uL (0.0-1.1) Eosinophils # (Auto) 0.1 x10^3/uL (0.0-0.7) Basophils # (Auto) 0.0 x10^3/uL (0.0-0.2) Sodium Level 147 mmol/L (136-145) Potassium Level 4.1 mmol/L (3.5-5.1) Chloride Level 108 mmol/L (98-107) Carbon Dioxide Level 30 mmol/L (21-32) Anion Gap 9 (6-14) Blood Urea Nitrogen 13 mg/dL (8-26) Creatinine 1.0 mg/dL (0.7-1.3) Estimated GFR (Cockcroft-Gault) 87.9 BUN/Creatinine Ratio 13 (6-20) Glucose Level 94 mg/dL (70-99) Calcium Level 9.2 mg/dL (8.5-10.1) Magnesium Level 1.6 mg/dL (1.8-2.4) Total Bilirubin 0.4 mg/dL (0.2-1.0) Aspartate Amino Transf (AST/SGOT) 15 U/L (15-37) Alanine Aminotransferase (ALT/SGPT) 22 U/L (16-63) Alkaline Phosphatase 58 U/L (46-116) Creatine Kinase 136 U/L (39-308) Troponin I Quantitative < 0.017 ng/mL (0.000-0.055) < 0.017 ng/mL (0.000-0.055) Total Protein 6.7 g/dL (6.4-8.2) Albumin 3.3 g/dL (3.4-5.0) Albumin/Globulin Ratio 1.0 (1.0-1.7) Urine Collection Type Unknown Urine Color Yellow Urine Clarity Clear Urine pH 5.5 Urine Specific [place] 1.015 Urine Protein Negative mg/dL (NEG-TRACE) Urine Glucose (UA) Negative mg/dL (NEG) Urine Ketones (Stick) Negative mg/dL (NEG) Urine Blood Large (NEG) Urine Nitrite Positive (NEG) Urine Bilirubin Negative (NEG) Urine Urobilinogen Dipstick 1.0 mg/dL (0.2 mg/dL) Urine Leukocyte Esterase Large (NEG) Urine RBC >40 /HPF (0-2) Urine WBC 11-20 /HPF (0-4) Urine Bacteria Moderate /HPF (0-FEW) Lactic Acid Level 0.9 mmol/L (0.4-2.0) Glucose (Fingerstick) 90 mg/dL (70-99) Brief Hospital Course Mr. Payan is a 77 old [sex] who presented with [ ] Very pleasant 77-year-old -Russian male with no assistive device at home , drove himself to the emergency room. Admitted by ER because of weakness with some elyte abnormalities and UTI. He does have a UTI, got a gram of Rocephin. Electrical abnormalities including low magnesium 1.6, mild hyponatremia 127 with a low albumin 3.3. He feels better. Walked with no problems. I am comfortable discharging on by mouth Cipro today. NO hx of compliacted UTI inpast , HE is asymptomatic Discharge Information Condition at Discharge: Improved, Stable Disposition/Orders: D/C to Home Scheduled Baclofen (Baclofen) 20 Mg Tablet, 1 TAB PO BID, #90 Ref 2 (Reported) Entered as Reported by: Ck Vanessa on 01/29/181125 Last Action: New Order on 01/29/181125 by Ck Vanessa Ciprofloxacin Hcl (Cipro) 500 Mg Tablet, 1 TAB PO BID, #20 Prescribed by: CATY ARROYO on 01/29/18 1154 Metformin Hcl (Metformin Hcl) 500 Mg Tablet, 500 MG PO BID, (Reported) Entered as Reported by: AILYN TAYLOR on 09/19/13701 Last Action: Converted on 01/29/18906 by CATY ARROYO Scheduled PRN Hydrocodone Bit/Acetaminophen (Hydrocodone-Apap 5-325 ) 1 Each Tablet, 1 TAB PO PRN Q6HRS PRN for PAIN, #14 Prescribed by: ROBERT MENDEZ on 11/25/15 0522 Last Action: HELD on 01/29/18906 by CATY ARROYO Miscellaneous Medications Finasteride (Finasteride) 5 Mg Tablet, 5 MG PO, (Reported) Entered as Reported by: AILYN TAYLOR on 09/19/13702 Last Action: Continued on 01/29/18906 by CATY ARROYO Hydrochlorothiazide (Hydrochlorothiazide) 25 Gm Powder, 25 GM MC, (Reported) Entered as Reported by: AILYN TAYLOR on 09/19/13702 Last Action: HELD on 01/29/18906 by CATY ARROYO Hydrocodone Bit/Acetaminophen (Hydrocodone-Apap 5-325 ) 1 Each Tablet, 1 EACH PO, (Reported) Entered as Reported by: AILYN TAYLOR on 09/19/13700 Last Action: Continued on 01/29/18906 by CATY ARROYO Losartan Potassium (Losartan Potassium) 50 Mg Tablet, 50 MG PO, (Reported) Entered as Reported by: AILYN TAYLOR on 09/19/13700 Last Action: Continued on 01/29/18906 by CATY ARROYO Naproxen (Naprosyn) 500 Mg Tablet, 500 MG PO, (Reported) Entered as Reported by: AILYN TAYLOR on 09/19/13704 Last Action: Converted on 01/29/18906 by CATY ARROYO Pregabalin (Lyrica) 75 Mg Capsule, 75 MG PO, (Reported) Entered as Reported by: AILYN TAYLOR on 09/19/13 0704 Last Action: Continued on 01/29/18906 by CATY GUTIERREZ MD Jan 29, 2018 12:01
[2018-01-29] MEDS ORDERED: PREGABALIN 75 MG CAPSULE PO SCH (21:00)
== END 2018-01-29 13:52 | disposition home or self-care (01) | DRG 690 ==
LOC: ER 03:57 → 6 SOUTH 05:55
PROVIDERS: ADMIT Internal Medicine; ATTEND Internal Medicine
DX: N39.0 Urinary tract infection, site not specified (principal); E44.1 Mild protein-calorie malnutrition; E87.1 Hypo-osmolality and hyponatremia; J90 Pleural effusion, not elsewhere classified; J98.11 Atelectasis; E78.00 Pure hypercholesterolemia, unspecified; E78.5 Hyperlipidemia, unspecified; G93.89 Other specified disorders of brain; E83.42 Hypomagnesemia; E11.42 Type 2 diabetes mellitus with diabetic polyneuropathy; I10 Essential (primary) hypertension; J44.9 Chronic obstructive pulmonary disease, unspecified; Z79.84 Long term (current) use of oral hypoglycemic drugs; Z82.49 Family history of ischemic heart disease and other diseases of the circulatory system; Z87.891 Personal history of nicotine dependence; Z79.4 Long term (current) use of insulin; Z68.32 Body mass index [BMI] 32.0-32.9, adult
CPT/HCPCS: 36415; 70450; 71045; 80053; 81001; 82550; 82962; 83605; 83735; 84484; 85025; 87086; 93005; 96365; J0690; J0696; J1815; J3475; 99285-25

== ENCOUNTER → 2018-07-01 | Outpatient (CLI) | payer MEDICARE, MEDICAID ==
[~2018-07-01] MED LIST changes: +BACL20TA PO; +CIPR500T94 PO; -HYDR-2758 PO; +HYDR-2761 PO; +LOSA-73 PO; -LOSA50TA7 PO
--- NOTE | 2018-07-01 16:22 | KCIC ---
Examination: 2 views of the bilateral knees HISTORY: History of primary arthritis of the knee COMPARISON: None available. FINDINGS: Chondrocalcinosis of the knee identified in the bilateral knees. Moderate joint space loss identified in the bilateral knees most in the medial compartments of the bilateral knees. Moderate osteophytes in the medial compartment bilaterally. IMPRESSION: 1. Moderate tricompartmental degenerative changes. 2. Chondrocalcinosis. Electronically signed by: Yusef Razo MD (07/01/2018 4:20 PM) [id number]
== END | disposition home or self-care (01) ==
LOC: KCIC 15:43
PROVIDERS: ATTEND Internal Medicine
DX: M17.0 Bilateral primary osteoarthritis of knee (principal); M11.262 Other chondrocalcinosis, left knee; M11.261 Other chondrocalcinosis, right knee; M25.762 Osteophyte, left knee; M25.761 Osteophyte, right knee
CPT/HCPCS: 73560